=== PATIENT | male | born 1970 | race Caucasian/White ===

== ENCOUNTER 2019-09-25 07:35 | Inpatient (IN) | payer BC, OTHER ==
[~2019-09-25] VITALS: Ht 185 cm; Wt 121.3 kg
[2019-09-25] VITALS (15 sets, daily range): BP systolic 114–141; BP diastolic 77–99
[2019-09-25] MEDS ORDERED: NITROGLYCERIN 2% OINT 1 GM UNIT DOSE PACKET TOP STA (07:42)
[2019-09-25] MEDS ORDERED: ASPIRIN 81 MG CHEW (CHILDREN'S ASA) PO ONE (07:45)
[2019-09-25] MEDS ORDERED: HEParin 1000 UNIT/ML (10ML VIAL) FOR BOLUS IV STA (07:45)
[2019-09-25] MEDS ORDERED: morphine INJ 10 MG/ML 1ML (SYR OR VIAL) IVP ONE (07:45)
[2019-09-25] MEDS ORDERED: TICAGRELOR 90 MG TABLET (BRILINTA) PO STA (07:45)
--- NOTE | 2019-09-25 07:51 | ED Chest Pain ---
General Chief Complaint: Cardiac/General Problems Stated Complaint: CHEST PAIN Nursing Triage Note: Woke up from sleep approximately 10 minutes prior to arrival with pressure in chest rated at 8/10. Denies previous heart history. Pain does not radiate. STates he is slightly short of breath. Nursing Sepsis Screen: No Definite Risk Source: patient History of Present Illness Date Seen by Provider: Sep 25, 2019 Time Seen by Provider: 07:35 Initial Comments 49-year-old male presenting with complaints of chest pressure started 5-10 minutes prior to arrival. He rates the pressure in his chest 8 out of 10. He denies any personal cardiac history. He states that the pressure is not radiating anywhere. He has some nausea with the pressure and feels sweaty. He did not take anything at home prior to arrival. He denies any past medical history from himself but has a family history with his dad having a heart attack as well as his paternal grandfather Allergies and Home Medications Allergies Coded Allergies: No Known Drug Allergies (Unverified , 09/25/19) Patient Home Medication List Home Medication List Reviewed: Yes Review of Systems Review of Systems Constitutional: No chills; diaphoresis; No fever; malaise EENTM: No Symptoms Reported Respiratory: Shortness of Air (mild shortness of breath with his pressure in chest) Cardiovascular: Chest Pain (chest pressure in middle of chest) Gastrointestinal: Nausea; Denies Vomiting Genitourinary: No Symptoms Reported Musculoskeletal: no symptoms reported Skin: no symptoms reported Psychiatric/Neurological: No Symptoms Reported Past Mgvygnc-Rynqxw-Lqanfs Hx Past Med/Social Hx: Reviewed Nursing Past Med/Soc Hx Patient Social History Alcohol Use: Occasionally Uses Recreational Drug Use: No Smoking Status: Former Smoker Former Smoker, Quit: Sep 11, 2018 2nd Hand Smoke Exposure: No Recent Foreign Travel: No Contact w/Someone Who Travel: No Recent Infectious Disease Expo: No Recent Hopitalizations: No Seasonal Allergies Seasonal Allergies: No Past Medical History Surgeries: No Respiratory: No Cardiac: No Neurological: No Genitourinary: No Gastrointestinal: No Musculoskeletal: No Endocrine: No HEENT: No Cancer: No Psychosocial: No Integumentary: No Blood Disorders: No Adverse Reaction/Blood Tranf: No Family Medical History Reviewed and Corrections made CAD Over 55 Years Old Physical Exam Vital Signs Vital Signs - First Documented 09/25/19 07:41 Temp 35.9 Pulse 57 Resp 15 B/P (MAP) 129/88 (102) Pulse Ox 99 Capillary Refill : Less Than 3 Seconds Height, Weight, BMI Height: '" Weight: lbs. oz. kg; 35.00 BMI Method: General Appearance: WD/WN, Anxious, Mild Distress HEENT: PERRL/EOMI, Pharynx Normal Neck: Full Range of Motion, Normal Inspection, Non Tender, Supple Respiratory: Chest Non Tender, Lungs Clear, Normal Breath Sounds Cardiovascular: Regular Rate, Rhythm, Normal Peripheral Pulses Gastrointestinal: Normal Bowel Sounds, No Organomegaly, Non Tender, Soft Rectal: Deferred Extremity: Normal Capillary Refill, No Pedal Edema Neurologic/Psychiatric: Alert, Oriented x3, No Motor/Sensory Deficits Skin: Normal Color, Diaphoresis (mild) Progress/Results/Core Measures Results/Orders Lab Results Laboratory Tests Test 09/25/19 07:44 09/25/19 08:00 Range/Units White Blood Count 13.8 H 4.3-11.0 10^3/uL Red Blood Count 5.09 4.35-5.85 10^6/uL Hemoglobin 15.9 13.3-17.7 G/DL Hematocrit 46 40-54 % Mean Corpuscular Volume 90 80-99 FL Mean Corpuscular Hemoglobin 31 25-34 PG Mean Corpuscular Hemoglobin Concent 35 32-36 G/DL Red Cell Distribution Width 12.8 10.0-14.5 % Platelet Count 328 130-400 10^3/uL Mean Platelet Volume 10.8 H 7.4-10.4 FL Neutrophils (%) (Auto) 46 42-75 % Lymphocytes (%) (Auto) 45 H 12-44 % Monocytes (%) (Auto) 7 0-12 % Eosinophils (%) (Auto) 2 0-10 % Basophils (%) (Auto) 0 0-10 % Neutrophils # (Auto) 6.3 1.8-7.8 X 10^3 Lymphocytes # (Auto) 6.2 H 1.0-4.0 X 10^3 Monocytes # (Auto) 1.0 0.0-1.0 X 10^3 Eosinophils # (Auto) 0.3 0.0-0.3 10^3/uL Basophils # (Auto) 0.1 0.0-0.1 10^3/uL Prothrombin Time 12.7 12.2-14.7 SEC INR Comment 0.9 0.8-1.4 Activated Partial Thromboplast Time 25 24-35 SEC Sodium Level 139 135-145 MMOL/L Potassium Level 3.5 L 3.6-5.0 MMOL/L Chloride Level 101 98-107 MMOL/L Carbon Dioxide Level 25 21-32 MMOL/L Anion Gap 13 5-14 MMOL/L Blood Urea Nitrogen 13 7-18 MG/DL Creatinine 0.97 0.60-1.30 MG/DL Estimat Glomerular Filtration Rate > 60 BUN/Creatinine Ratio 13 Glucose Level 130 H 70-105 MG/DL Calcium Level 9.3 8.5-10.1 MG/DL Corrected Calcium 9.1 8.5-10.1 MG/DL Magnesium Level 2.1 1.6-2.4 MG/DL Total Bilirubin 0.5 0.1-1.0 MG/DL Aspartate Amino Transf (AST/SGOT) 33 5-34 U/L Alanine Aminotransferase (ALT/SGPT) 61 H 0-55 U/L Alkaline Phosphatase 93 40-136 U/L Troponin I < 0.30 <0.30 NG/ML Pro-B-Type Natriuretic Peptide 16.7 <75.0 PG/ML Total Protein 7.2 6.4-8.2 GM/DL Albumin 4.2 3.2-4.5 GM/DL My Orders Orders - BREA ACEVEDO MD Cbc With Automated Diff (09/25/19 07:41) Magnesium (09/25/19 07:41) Chest 1 View Ap/Pa Only (09/25/19 07:41) Ekg Tracing (09/25/19:41) Comprehensive Metabolic Panel (09/25/19:41) Protime With Inr (09/25/19 07:41) Partial Thromboplastin Time (09/25/19 07:41) O2 (09/25/19 07:41) Monitor-Rhythm Ecg Trace Only (09/25/19:41) Aspirin Chewable Tablet (Baby Aspirin Ch (09/25/19 07:45) Ed Iv/Invasive Line Start (09/25/19 07:41) Troponin I Fs (09/25/19 07:41) Probnp Fs (09/25/19 07:41) Morphine Injection (Morphine Injection (09/25/19 07:45) Nitroglycerin Ointment (Nitrobid Ointme (09/25/19 07:42) Ticagrelor Tablet (Brilinta Tablet) (09/25/19 07:45) Heparin (Bolus Per Protocol) (Heparin (B (09/25/19 07:45) Coronavirus Sars-Cov-2 So 2019 (09/25/19 07:53) Ondansetron Injection (Zofran Injectio (09/25/19 07:54) Morphine Injection (Morphine Injection (09/25/19 08:02) Medications Given in ED Current Medications Medications Dose Ordered Sig/Tracee Route Start Time Stop Time Status Last Admin Dose Admin Aspirin 324 mg ONCE ONCE PO 09/25/19 07:45 09/25/19 07:46 DC 09/25/19 07:46 324 MG Morphine Sulfate 2 mg ONCE ONCE IVP 09/25/19 07:45 09/25/19 07:46 DC 09/25/19 07:47 2 MG Vital Signs/I&O 09/25/19 09/25/19 07:41 08:15 Temp 35.9 35.9 Pulse 57 54 Resp 15 16 B/P (MAP) 129/88 (102) 127/93 (104) Pulse Ox 99 99 Blood Pressure Mean: 102 Progress Progress Note : Progress Note his ECG shows ST elevation in lead I and aVL with depression in III and aVF. Will give aspirin and nitroglycerin with morphine. [address] Sanders and updated him of the patient. He requested 180 mg of Brillinta as well as Heparin 5000 units. Transfer to ED and will go to [facility] from there 0746 d/w Jairo RN, nursing supervisor bit and shank department to update him of pt 0748 d/w ED and Dr. Varghese so they were aware of transfer. He requested Covid -19 swab and to send swab with ambulance so it could be run in [place]. 0802 pt reports no significant change in his pressure. Will repeat another 2 mg of Morphine in addition to his initial meds. EMS here to transport pt. Labs show mild elevation of WBC count with increased lymphocytes. Chemistry with no acute significant abnormality and Troponin is <0.3. Initial ECG Impression Date: Sep 25, 2019 Initial ECG Impression Time: 07:37 Initial ECG Rate: 56 Initial ECG Rhythm: Normal Sinus Initial ECG Comparisson: No Previous ECG Available Comment Sinus rhythm with a heart rate of 56 bpm. FL interval 149 ms. QT interval 420 ms QTc interval 406 ms. There is no prior tracing available for comparison. He has ST elevation in leads 1 and aVL with depression in 3 and aVF. Diagnostic Imaging Diagonstic Imaging: Xray Plain Films/CT/US/NM/MRI: chest Comments [facility]. [place], [place] NAME: MARTÍN BEEBE [facility] REC#: [id number] PT STATUS: REG ER : 1970 PHYSICIAN: BREA ACEVEDO MD ADMIT DATE: 09/25/19/ER FS Draft Date of Exam:09/25/19 CHEST 1 VIEW AP/PA ONLY EXAMINATION: Chest 1 view HISTORY: Chest pain. COMPARISON: None available. FINDINGS: The lung volumes are normal. No focal consolidation is seen. No large pleural effusion or pneumothorax is seen. The cardiomediastinal silhouette is normal in size and contour. No acute osseous abnormality is seen. IMPRESSION: 1. No acute pleuroparenchymal process. Dictated on workstation # [id number] Dict: 09/25/19 0808 Trans: 09/25/19 0809 [facility] [id number] Interpreted by: CONY SUERO DO Electronically signed by: Departure Communication (Admissions) Time/Spoke to Consulting Phy: 07:[address] Sanders for cardiology and will have pt go to ED in [place] and then [facility] [employer] from there. Impression Primary Impression: STEMI (ST elevation myocardial infarction) Qualified Codes: I21.3 - ST elevation (STEMI) myocardial infarction of unspecified site Disposition: 02 XFER SHT-TRM HOSP ([facility] to go to [facility]) Condition: Critical Departure-Patient Inst. Referrals: NO,LOCAL PHYSICIAN (PCP/Family) Primary Care Physician BREA ACEVEDO MD Sep 25, 2019 07:51
[2019-09-25] MEDS ORDERED: ONDANSETRON 4 MG/2 ML (SDV) Z0FRAN IVP STA (07:54)
[2019-09-25 07:58] LABS: BASOPHILS % (AUTO) 0 % (0-10); EOSINOPHILS % (AUTO) 2 % (0-10); HEMATOCRIT 46 % (40-54); HEMOGLOBIN 15.9 G/DL (13.3-17.7); LYMPHOCYTES % (AUTO) 45 % (12-44); MEAN CORPUSCULAR HEMOGLOBIN 31 PG (25-34); MEAN CORPUSCULAR HGB CONC 35 G/DL (32-36); MEAN CORPUSCULAR VOLUME 90 FL (80-99); MEAN PLATELET VOLUME 10.8 FL (7.4-10.4); MONOCYTES % (AUTO) 7 % (0-12); PLATELET COUNT 328 10^3/uL (130-400); RED CELL DISTRIBUTION WIDTH 12.8 % (10.0-14.5); WHITE BLOOD COUNT 13.8 10^3/uL (4.3-11.0)
[2019-09-25 07:59] LABS: BASOPHILS # (AUTO) 0.1 10^3/uL (0.0-0.1); EOSINOPHILS # (AUTO) 0.3 10^3/uL (0.0-0.3); LYMPHOCYTES # (AUTO) 6.2 X 10^3 (1.0-4.0); NEUTROPHILS # (AUTO) 6.3 X 10^3 (1.8-7.8); NEUTROPHILS % (AUTO) 46 % (42-75)
[2019-09-25] MEDS ORDERED: morphine INJ 10 MG/ML 1ML (SYR OR VIAL) IVP STA (08:02)
[2019-09-25 08:08] LABS: CARBON DIOXIDE 25 MMOL/L (21-32); CHLORIDE 101 MMOL/L (98-107); POTASSIUM 3.5 MMOL/L (3.6-5.0); SODIUM 139 MMOL/L (135-145)
[2019-09-25 08:09] LABS: BILIRUBIN,TOTAL 0.5 MG/DL (0.1-1.0); CALCIUM 9.3 MG/DL (8.5-10.1); MAGNESIUM 2.1 MG/DL (1.6-2.4)
--- NOTE | 2019-09-25 08:09 | Diagnostic Imaging Report ---
EXAMINATION: Chest 1 view HISTORY: Chest pain. COMPARISON: None available. FINDINGS: The lung volumes are normal. No focal consolidation is seen. No large pleural effusion or pneumothorax is seen. The cardiomediastinal silhouette is normal in size and contour. No acute osseous abnormality is seen. IMPRESSION: 1. No acute pleuroparenchymal process. Dictated by: Dictated on workstation # [id number]
[2019-09-25 08:13] LABS: BUN/CREATININE RATIO 13; CREATININE SERUM 0.97 MG/DL (0.60-1.30); GFR ESTIMATED > 60; GLUCOSE 130 MG/DL (70-105)
[2019-09-25 08:14] LABS: ALANINE AMINOTRANSFERASE 61 U/L (0-55); ALBUMIN 4.2 GM/DL (3.2-4.5); ALKALINE PHOSPHATASE 93 U/L (40-136); TOTAL PROTEIN 7.2 GM/DL (6.4-8.2)
[2019-09-25 08:25] LABS: INR 0.9 (0.8-1.4); PROTHROMBIN TIME PATIENT 12.7 SEC (12.2-14.7)
--- OUTSIDE RECORDS SUMMARY | 2019-09-25 08:46 | XMS REPORT | Continuity of Care Document ---
Demographics Preferred Language Unknown Marital Status Unknown [employer] Affiliation Unknown Race Unknown Ethnic Group Unknown Author Organization Unknown Address Unknown Phone Unavailable Allergies There is no data. Medications There is no data. Problems There is no data. Procedures There is no data. Results Test Result Range Complete blood count (CBC) with automate d white blood cell (WBC) differential - 09/25/19 07:44 Blood leukocytes automated count (number/volume) 13.8 10*3/uL 4.3-11.0 Blood erythrocytes automated count (number/volume) 5.09 10*6/uL 4.35-5.85 Venous blood hemoglobin measurement (mass/volume) 15.9 g/dL 13.3-17.7 Blood hematocrit (volume fraction) 46 % 40-54 Automated erythrocyte mean corpuscular volume 90 [ foz_us] 80-99 Automated erythrocyte mean corpuscular h emoglobin (mass per erythrocyte) 31 pg 25-34 Automated erythrocyte mean corpuscular h emoglobin concentration measurement (mass/volume) 35 g/dL 32-36 Automated erythrocyte distribution width ratio 12. 8 % 10.0- 14.5 Automated blood platelet count (count/volume) 328 10*3/uL 130-400 Automated blood platelet mean volume measurement 10.8 [foz_us] 7.4-10.4 Automated blood neutrophils/100 leukocytes 46 % 42-75 Automated blood lymphocytes/100 leukocytes 45 % 12-44 Blood monocytes/100 leukocytes 7 % 0-12 Automated blood eosinophils/100 leukocytes 2 % 0-10 Automated blood basophils/100 leukocytes 0 % 0-10 Blood neutrophils automated count (number/volume) 6.3 10*3 1.8-7.8 Blood lymphocytes automated count (number/volume) 6.2 10*3 1.0-4.0 Blood monocytes automated count (number/volume) 1. 0 10*3 0.0-1.0 Automated eosinophil count 0.3 10*3/uL 0 .0-0.3 Automated blood basophil count (count/volume) 0.1 10*3/uL 0.0-0.1 Comprehensive metabolic panel - 09/25/19 07:44 Serum or plasma sodium measurement (moles/volume) 139 mmol/L 135-145 Serum or plasma potassium measurement (moles/volume) 3.5 mmol/L 3.6-5.0 Serum or plasma chloride measurement (moles/volume) 101 mmol/L 98-107 Carbon dioxide 25 mmol/L 21-32 Serum or plasma anion gap determination (moles/volume) 13 mmol/L 5-14 Serum or plasma urea nitrogen measurement (mass/volume ) 13 mg/dL 7-18 Serum or plasma creatinine measurement (mass/volume) 0.97 mg/dL 0.60-1.30 Serum or plasma urea nitrogen/creatinine mass ratio 13 NRG Serum or plasma creatinine measurement w ith calculation of estimated glomerular filtration rate > NRG Serum or plasma glucose measurement (mass/volume) 130 mg/dL 70-105 Serum or plasma calcium measurement (mass/volume) 9.3 mg/dL 8.5-10.1 Serum or plasma total bilirubin measurement (mass/volu me) 0.5 mg/dL 0.1-1.0 Serum or plasma alkaline phosphatase bernardo surement (enzymatic activity/volume) 93 U/L 40-136 Serum or plasma aspartate aminotransfera se measurement (enzymatic activity/volume) 33 U/L 5-34 Serum or plasma alanine aminotransferase measurement (enzymatic activity/volume) 61 U/L 0-55 Serum or plasma protein measurement (mass/volume) 7.2 g/dL 6.4-8.2 Serum or plasma albumin measurement (mass/volume) 4.2 g/dL 3.2-4.5 CALCIUM CORRECTED 9.1 mg/dL 8.5-10.1 Magnesium - 09/25/19 07:44 Magnesium 2.1 mg/dL 1.6-2.4 TROPONIN I FS - 09/25/19 07:44 TROPONIN I FS < 0.30 <0.30 PROBNP FS - 09/25/19 07:44 PROBNP FS 16.7 pg/mL <75.0 PT panel in platelet poor plasma by coag ulation assay - 09/25/19 07:44 Prothrombin time (PT) in platelet poor plasma by coagu lation assay 12.7 s 12.2-14.7 INR in platelet poor plasma or blood by coagulation as say 0.9 0.8-1.4 Activated partial thromboplastin time (a PTT) in platelet poor plasma bycoagulation assay - 09/25/19 07:44 Activated partial thromboplastin time (a PTT) in platelet poor plasma bycoagulation assay 25 s 24-35 Encounters ACCT No. Visit Date/Time Discharge Status Pt. Type Provider Facility Loc./Unit Complaint [id number] 09/25/2019 08:00:00 Document Registration
[2019-09-25] MEDS ORDERED: niCARdipine 25 MG/10 ML (CARDENE) AMP IV ONE (10:14)
[2019-09-25] MEDS ORDERED: NS (IVPB) 250 ML ONE (10:15)
[2019-09-25] MEDS ORDERED: EPTIFIBATIDE BOLUS 20 ML IV ONE (10:33)
[2019-09-25] MEDS ORDERED: LIDOCAINE 1% INJ 20 ML 20 ML VIAL ONE (10:35)
[2019-09-25] MEDS ORDERED: NITRO DRIP 25000 MCG/D5W 250 ML IV ONE (10:35)
[2019-09-25] MEDS ORDERED: MIDAZOLAM 5 MG/5 ML (VERSED) VIAL ONE (10:35)
[2019-09-25] MEDS ORDERED: fentaNYL INJECTION 100 MCG/2 ML AMP ONE (10:35)
[2019-09-25] MEDS ORDERED: HEParin (CATH LAB) 2,000 ML IV ONE (10:35)
[2019-09-25] MEDS ORDERED: HEParin 1000 UNIT/ML (10ML VIAL) FOR BOLUS ONE ×2 (10:35→17:41)
[2019-09-25] MEDS ORDERED: NS IV 1000 ML 1,000 ML ONE (10:35)
[2019-09-25] MEDS ORDERED: EPTIFIBATIDE DRIP 100 ML IV ONE (10:36)
[2019-09-25] MEDS ORDERED: HEParin DRIP 25000 UNIT/500ML 500 ML IV ONE (10:52)
--- NOTE | 2019-09-25 11:08 | History & Physicial-Cardiolgy ---
HPI-Cardiology Cardiology Consultation: Date of Consultation 09/25/19 Date of Admission Attending Physician Toro Sanders MD Admitting Physician Jyoti,Local Physician Consulting Physician Toro SANDERS MD HPI: Time Seen by a Provider: 09:20 Chief Complaint: Chest pain This is a 49-year-old gentleman with no significant past medical history who presents with chest pain to [facility]. Moderate to severe chest pain. Intensity 8/10. Feels like pressure. No radiation. Associated with nausea and sweating. No shortness of breath, syncope or near syncope. Denies active smoking. Denies diabetes, hypertension, hyperlipidemia. Family history is positive for father having an SC. EKG shows acute lateral SC and patient is emergently being transferred to via [facility]. Review of Systems-Cardiology Review of Systems Constitutional: As described under HPI; No As described under HPI, No no symptoms reported, No chills, No fever, No lightheadedness Eyes: No As described under HPI, No no symptoms reported, No blindness, No blurred vision, No contact lenses, No drainage, No decreased acuity, No foreign body sensation, No pain, No vision change Ears/Nose/Throat: No As described under HPI, No no symptoms reported, No chronic hearing loss, No ear discharge, No ear pain, No nasal drainage, No ulcerations Respiratory: No no symptoms reported; As described under HPI; No As described under HPI, No cough, No orthopnea, No shortness of breath, No SOB with excertion Cardiovascular: No no symptoms reported; As described under HPI; No As described under HPI; chest pain; No edema, No irregular heart rate, No lightheadedness, No palpitations Gastrointestinal: No no symptoms reported, No As described under HPI, No abdomen distended, No abdominal pain, No blood streaked bowels, No constipation, No diarrhea, No nausea, No vomiting, No stool coloration changes Genitourinary: No As described under HPI, No burning, No dysuria, No discharge, No frequency, No flank pain, No hematuria, No urgency Skin: No rash, No skin related problems, No ulcerations Psychiatric/Neurological: No anxiety, No depression, No seizure, No focal weakness, No syncope Hematologic: No bleeding abnormalities VZB-Aovdso-Mseufr Hx Patient Social History Alcohol Use: Occasionally Uses Recreational Drug Use: No Smoking Status: Former Smoker 2nd Hand Smoke Exposure: No Recent Foreign Travel: No Recent Infectious Disease Expo: No Past Medical History PMH As described under Assessment. Allergies and Home Medications Allergies Coded Allergies: No Known Drug Allergies (Unverified , 09/25/19) Home Medications No Active Prescriptions or Reported Meds Patient Home Medication List Home Medication List Reviewed: Yes Physical Exam-Cardiology Physical Exam Vital Signs/I&O 09/26/19 09/26/19 09/26/19 09/26/19 05:00 06:00 06:30 07:00 Temp 36.8 Pulse 72 73 92 Resp 14 16 23 B/P (MAP) 139/86 (103) 130/86 (101) 121/84 (96) Pulse Ox 95 95 94 O2 Delivery Room Air Room Air Room Air 09/26/19 09/26/19 09/26/19 09/26/19 07:00 08:00 08:00 08:00 Temp 36.3 Pulse 97 75 Resp 12 B/P (MAP) 134/83 (100) Pulse Ox 95 97 O2 Delivery Room Air Room Air 09/26/19 09/26/19 09/26/19 09/26/19 09:00 09:20 10:00 11:00 Pulse 82 76 79 65 Resp 17 18 13 B/P (MAP) 101/73 (82) 130/81 (97) Pulse Ox 95 96 96 O2 Delivery Room Air Room Air Room Air 09/26/19 09/26/19 09/26/19 09/26/19 12:00 12:00 12:00 12:53 Temp 36.8 Pulse 68 76 Resp 15 B/P (MAP) 110/69 (83) Pulse Ox 96 97 O2 Delivery Room Air Room Air 09/26/19 09/26/19 09/26/19 09/26/19 13:00 13:24 14:00 15:00 Pulse 67 79 65 72 Resp 14 16 12 B/P (MAP) 120/81 (94) 124/92 (103) 121/88 (99) Pulse Ox 95 95 96 O2 Delivery Room Air Room Air Room Air 09/26/19 09/26/19 15:47 16:00 Temp 36.7 Pulse 70 Resp 13 B/P (MAP) 120/83 (95) Pulse Ox 95 O2 Delivery Room Air 09/26/19 00:00 Intake Total 1840 ml Output Total 1700 ml Balance 140 ml Capillary Refill : Less Than 3 Seconds Constitutional: appears stated age, AAO x 3; No apparent distress; well- developed, well-nourished HEENT: PERRL; No discharge; hearing is well preserved, oral hygience is good; No ulceration, No xanthelasmas are seen Neck: No carotid bruit; carotid pulses are 2 + bilaterally Respiratory: chest is bilaterally symmetric, lungs clear to auscultation; No stridor, No wheezing, No pleural rub Cardiovascular: regular rate-rhythm, S1 and S2; No diastolic murmur, No systolic murmur Gastrointestinal: soft, audible bowel sounds; No spleenomegaly Rectal: deferred Extremities: normal range of motion, non-tender, normal inspection; No clubbing, No cyanosis; no lower extremity edema bilateral; No significant edema Neurologic/Psychiatric: no motor/sensory deficits, alert, normal mood/affect, oriented x 3, power is 5/5 both on sides Skin: normal color, warm/dry; No rash, No ulcerations Data Review Labs Laboratory Tests 09/25/19 17:15: Activated Partial Thromboplast Time 31 09/26/19 00:20: Activated Partial Thromboplast Time 33 09/26/19 02:55: White Blood Count 16.1H, Red Blood Count 4.87, Hemoglobin 15.1, Hematocrit 43, Mean Corpuscular Volume 89, Mean Corpuscular Hemoglobin 31, Mean Corpuscular Hemoglobin Concent 35, Red Cell Distribution Width 13.3, Platelet Count 306, Mean Platelet Volume 11.0H, Sodium Level 140, Potassium Level 3.7, Chloride Level 108H, Carbon Dioxide Level 19L, Anion Gap 13, Blood Urea Nitrogen 8, Creatinine 0.85, Estimat Glomerular Filtration Rate > 60, BUN/Creatinine Ratio 9, Glucose Level 120H, Calcium Level 9.0, Troponin I 39.674*H 09/26/19 07:09: Activated Partial Thromboplast Time 34 09/26/19 13:45: Activated Partial Thromboplast Time 36H Microbiology 09/25/19 MRSA Screen - Final, Complete MRSA not isolated ECG Impression ECG Initial ECG Rhythm: Normal Sinus Initial ECG Impression: Acute SC A/P-Cardiology Assessment/Admission Diagnosis Acute lateral STEMI Admission Status: Inpatient Order (span 2 midnights) Reason for Inpatient Admission: STEMI Plan Acute lateral STEMI, emergent coronary angiography and primary PCI is recommended. Emergent consent taken. Aspirin, Brilinta, IV heparin given. Toro SANDERS MD Sep 25, 2019 11:08
--- NOTE | 2019-09-25 11:09 | Cardiac Procedure Note-CS/ASA ---
Pre-Procedure Note Pre-Op Procedure Note H&P Reviewed The H&P was reviewed, patient examined and no changes noted. Date H&P Reviewed: Sep 25, 2019 Time H&P Reviewed: 09:20 Conscious Sedation Pre-Proced Time 09:20 ASA Score 3 For ASA 3 and 4: Consider anesthesia and medical clearance. Also, for patients with a history of failed moderate sedation consider anesthesia. Airway Lungs Heart ASA score ASA 1: a normal healthy patient ASA 2: a patient with a mild systemic disease (mid diabetes, controlled hypertension, obesity ASA 3: a patient with a severe systemic disease that limits activity (angina, COPD, prior Myocardial infarction) ASA 4: a patient with an incapacitating disease that is a constant threat to life (CHF, renal failure) ASA 5: a moribund patient not expected to survive 24 hrs. (ruptured aneurysm) ASA 6: a declared brain- patient whose organs are being harvested. For emergent operations, add the letter E after the classification Mallampati Classification Grade 1 Sedation Plan Analgesia, Amnesia, Plan communicated to team members, Discussed options with patient/fam, Discussed risks with patient/fam The patient is an appropriate candidate to undergo the planned procedure, sedation, and anesthesia. The patient immediately re-assessed prior to indication. Toro TAM MD Sep 25, 2019 11:09
--- NOTE | 2019-09-25 11:11 | Coronary Angiography & PCI ---
Coronary Angiography & PCI DATE OF PROCEDURE: 09/25/19 INDICATION: Acute lateral STEMI. PREOPERATIVE DIAGNOSIS: Acute Lateral STEMI. POSTOPERATIVE DIAGNOSIS: Significant athero-ectasia, occluded OM 2, successful revascularization. HISTORY: This is a 49-year-old gentleman with no significant past medical history. He presented with acute chest pain and ST elevations in lead 1, aVL. Working diagnosis of acute STEMI. Therefore, the patient was transferred for emergent coronary angiography. PROCEDURES PERFORMED: 1.Coronary angiography. 2.Left heart catheterization. 3.PTCA to second OM. 4. Manual thrombectomy. COMPLICATIONS: None. SPECIMENS: None. ESTIMATED BLOOD LOSS: 10 mL ANESTHESIA: Conscious sedation ANTICOAGULATION: IV heparin CONTRAST: 314 mL. FLUOROSCOPY: 38.1 minutes. FLOUROSCOPY DOSE: [id number] mgy. PROCEDURE DETAILS: The patient is a 49 male and was brought to the laboratory cureman after emergent informed consent was taken by the ER attending. He was transferred emergently from [facility] to [facility] for primary PCI. He was draped and prepped in the usual sterilized fashion. Since he was considered of PUI for COVID-19, COVID-19 protocol was followed. RCA was engaged with a JR4 catheter. EBU 3.5 guide catheter for left coronary angiography. FINDINGS: 1.Left main: Patent. 2.LAD: Athero-ectasia noted in the proximal and mid section with mild slow flow distally. No focal stenosis noted. 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 Large thrombus burden likely. Occluded OM 2 with no distal vessel noted on prolonged injection. 4.RCA: Athero-ectasia noted in the mid RCA with slow distal flow. 5.Left heart catheterization: LV pressure 120/2 mmHg. LVEDP 16 mmHg. Aortic pressure 117/78 mmHg. LVEF 45-50 percent. Mild global hypokinesis. No gradient across the aortic valve. RECOMMENDATIONS: PCI to second OM is recommended. INTERVENTION DETAILS: Door to balloon time of 47 minutes. EBU 3.5 guide catheter, whisper extra- support guidewire, IV heparin for anticoagulation. Very difficult PCI. No distal vessel was noted even on prolonged injections. We've gradually probed with the whisper wire and were able to get distally. However we were unclear whether we were in the true lumen since there were no recanalization or even faint filling of the distal vessel with balloon angioplasty with an emerge 2.0 x 12 mm balloon. Therefore we left the whisper wire in place and went in with the Choice PT wire. The Choice PT wire also followed the whisper wire. A lot of low-pressure ballooning was done in the entire occluded segment. We then noted faint filling in an AV groove artery. We then pulled back the whisper wire and placed it in the AV groove artery. Gentle ballooning was done at the ostium of the AV groove artery with mild recanalization. After significant ballooning we noted faint filling of an OM 2. We therefore took a third whisper extra-support wire and with difficulty, were able to advance into the second OM. Ballooning was done anywhere from 4 smitha to 10 smitha throughout the length of the occlusion. Prolonged ballooning was done as much as for 80 seconds. Post angioplasty we noted significant improvement in flow. However no severe stenosis was noted. Distal embolization was noted. We then took a Pronto catheter and placed it just past the aneurysm and manual thrombectomy was done. Afterwards we used the same catheter and used the lumen to inject 500 g of Cardene and 2 boluses of Integrilin. Significant improved flow was noted in the OM 2 with no focal stenosis therefore stenting was not done. The patient was started on IV heparin as well as IV Integrilin. Patient was having no further chest pain. Therefore we decided to stop and treat him with medical therapy overnight. Right femoral artery was closed with a minx device. CONCLUSIONS: 1. At least moderate athero-ectasia of the LAD and RCA. 2. 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 3. Successful revascularization with balloon angioplasty, thrombus aspiration and intracoronary injection of 2B3A and Cardene. No focal stenosis therefore stenting not done. 4. Overnight Integrilin and IV heparin. 5. Aggressive hydration. Arnold Sanders MD, FACP, FACC, [facility] Interventional Cardiology Toro SANDERS MD Sep 25, 2019 11:10
[2019-09-25] MEDS ORDERED: PATIENT MAY USE OWN MEDS, ALL PO SCH (11:15)
[2019-09-25] MEDS: NS IV 1000 ML 1,000 ML IV SCH ×2 (12:21→17:11)
--- OUTSIDE RECORDS SUMMARY | 2019-09-25 12:35 | XMS REPORT | Continuity of Care Document ---
Demographics Preferred Language Unknown Marital Status Unknown Episcopal Affiliation Unknown Race Unknown Ethnic Group Unknown [...] Status Pt. Type Provider Facility Loc./Unit Complaint [id number] 09/25/2019 08:00:00 Document Registration
[2019-09-25] MEDS: EPTIFIBATIDE DRIP 100 ML IV SCH ×2 (14:47→20:57)
[2019-09-25] MEDS: HEParin DRIP 25000 UNIT/500ML 500 ML IV SCH (15:54)
[2019-09-25] MEDS: TICAGRELOR 90 MG TABLET (BRILINTA) PO SCH (20:52)
--- NOTE | 2019-09-25 23:06 | NUR ---
Received negative Covid results. Dr. Sanders notified. Order received to remove pt from isolation.
[2019-09-26] VITALS (23 sets, daily range): BP systolic 101–143; BP diastolic 61–96
[2019-09-26] MEDS ORDERED: HEParin 1000 UNIT/ML (10ML VIAL) FOR BOLUS IV SCH (01:15)
[2019-09-26] MEDS: EPTIFIBATIDE DRIP 100 ML IV SCH ×2 (03:12→09:20)
[2019-09-26] MEDS: NS IV 1000 ML 1,000 ML IV SCH ×3 (03:13→22:37)
[2019-09-26 03:15] LABS: HEMOGLOBIN 15.1 G/DL (13.3-17.7); RED CELL DISTRIBUTION WIDTH 13.3 % (10.0-14.5); WHITE BLOOD COUNT 16.1 10^3/uL (4.3-11.0)
[2019-09-26 03:33] LABS: BUN/CREATININE RATIO 9; CARBON DIOXIDE 19 MMOL/L (21-32); CHLORIDE 108 MMOL/L (98-107); CREATININE SERUM 0.85 MG/DL (0.60-1.30); GFR ESTIMATED > 60; GLUCOSE 120 MG/DL (70-105); POTASSIUM 3.7 MMOL/L (3.6-5.0); SODIUM 140 MMOL/L (135-145)
[2019-09-26] MEDS: ASPIRIN E.C. 81 MG (ECOTRIN) TAB PO SCH (09:18)
[2019-09-26] MEDS: TICAGRELOR 90 MG TABLET (BRILINTA) PO SCH (09:20)
--- NOTE | 2019-09-26 10:57 | NUR ---
SPOKE WITH THE PT TO COMPLETE THE MED REC THE PT DENIES TAKING ANY PRESCRIPTION OR OTC MEDICATION
--- NOTE | 2019-09-26 11:10 | NUR ---
Pastoral care visit.
[2019-09-26] MEDS: meTOproloL SUCCINATE 50 MG (TOPROL XL) TAB PO SCH (11:30)
[2019-09-26] MEDS: CLOPIDOGREL 75 MG (PLAVIX) TABLET PO SCH (11:30)
[2019-09-26] MEDS: HEParin DRIP 25000 UNIT/500ML 500 ML IV SCH (11:34)
--- NOTE | 2019-09-26 16:50 | Cardiology Progress Note ---
Cardiology SOAP Progress Note Subjective: No further chest pain. Objective: I&O/Vital Signs 09/26/19 09/26/19 09/26/19 09/26/19 05:00 06:00 06:30 07:00 Temp 36.8 Pulse 72 73 92 Resp 14 16 23 B/P (MAP) 139/86 (103) 130/86 (101) 121/84 (96) Pulse Ox 95 95 94 O2 Delivery Room Air Room Air Room Air 09/26/19 09/26/19 09/26/19 09/26/19 07:00 08:00 08:00 08:00 Temp 36.3 Pulse 97 75 Resp 12 B/P (MAP) 134/83 (100) Pulse Ox 95 97 O2 Delivery Room Air Room Air 09/26/19 09/26/19 09/26/19 09/26/19 09:00 09:20 10:00 11:00 Pulse 82 76 79 65 Resp 17 18 13 B/P (MAP) 101/73 (82) 130/81 (97) Pulse Ox 95 96 96 O2 Delivery Room Air Room Air Room Air 09/26/19 09/26/19 09/26/19 09/26/19 12:00 12:00 12:00 12:53 Temp 36.8 Pulse 68 76 Resp 15 B/P (MAP) 110/69 (83) Pulse Ox 96 97 O2 Delivery Room Air Room Air 09/26/19 09/26/19 09/26/19 09/26/19 13:00 13:24 14:00 15:00 Pulse 67 79 65 72 Resp 14 16 12 B/P (MAP) 120/81 (94) 124/92 (103) 121/88 (99) Pulse Ox 95 95 96 O2 Delivery Room Air Room Air Room Air 09/26/19 09/26/19 15:47 16:00 Temp 36.7 Pulse 70 Resp 13 B/P (MAP) 120/83 (95) Pulse Ox 95 O2 Delivery Room Air 09/26/19 00:00 Intake Total 1840 ml Output Total 1700 ml Balance 140 ml Constitutional: appears stated age, AAO x 3; No apparent distress; well- developed, well-nourished Respiratory: chest is bilaterally symmetric, lungs clear to auscultation; No stridor, No wheezing, No pleural rub Cardiovascular: regular rate-rhythm, S1 and S2; No diastolic murmur, No systolic murmur Gastrointestional: soft, audible bowel sounds; No spleenomegaly Extremities: normal range of motion, non-tender, normal inspection; No clubbing, No cyanosis; no lower extremity edema bilateral; No significant edema Neurologic/Psychiatric: no motor/sensory deficits, alert, normal mood/affect, oriented x 3, power is 5/5 both on sides Skin: normal color, warm/dry; No rash, No ulcerations Results/Procedures: Labs Laboratory Tests 09/25/19 17:15: Activated Partial Thromboplast Time 31 09/26/19 00:20: Activated Partial Thromboplast Time 33 09/26/19 02:55: White Blood Count 16.1H, Red Blood Count 4.87, Hemoglobin 15.1, Hematocrit 43, Mean Corpuscular Volume 89, Mean Corpuscular Hemoglobin 31, Mean Corpuscular Hemoglobin Concent 35, Red Cell Distribution Width 13.3, Platelet Count 306, Mean Platelet Volume 11.0H, Sodium Level 140, Potassium Level 3.7, Chloride Level 108H, Carbon Dioxide Level 19L, Anion Gap 13, Blood Urea Nitrogen 8, Creatinine 0.85, Estimat Glomerular Filtration Rate > 60, BUN/Creatinine Ratio 9, Glucose Level 120H, Calcium Level 9.0, Troponin I 39.674*H 09/26/19 07:09: Activated Partial Thromboplast Time 34 09/26/19 13:45: Activated Partial Thromboplast Time 36H Microbiology 09/25/19 MRSA Screen - Final, Complete MRSA not isolated A/P: Assessment/Dx: Acute lateral STEMI Plan: Acute lateral STEMI, emergent coronary angiography showed significant athero- ectasia of all 3 vessels. Large proximal aneurysmal ectatic segment of around 9 mm in the proximal left circumflex artery with significant thrombus burden and occluded second OM. Likely embolic in origin. Difficult PCI requiring 300 mL of contrast and 42 minutes of fluoroscopy time but we were finally able to revascularize with MINAL-3 flow in the OM, however distal clot noted. POBA done in the entire segment. An aspiration catheter was used for manual thrombectomy. We also gave IV Cardene and Integrilin through the aspiration catheter. No focal severe stenosis noted at the site of occlusion, therefore very likely embolic phenomenon. Patient admitted overnight on IV Integrilin and IV heparin. Continued aspirin and Brilinta. I spoke at length with the patient and today. I discussed at length the procedure, CAD, STEMI, significant athero-ectasia. I discussed the use of a covered stent to seal the aneurysm however that will be an off label use. However there is a risk of rupture in the future and likely . I will also get a surgical consultation as an outpatient. We do not have a covered stent with length of 3.0 x 28. However due to significant thrombus in the aneurysm, I spoke at length and recommended Coumadin and Eliquis as an alternative. I discussed both the pros and cons for Coumadin and Eliquis. The patient decided to go with Eliquis. We will start Eliquis 5 mg twice a day. We will DC Brilinta and start Plavix. We will DC IV Integrilin when the infusion finishes. Heparin will be discontinued as well. High-dose statin therapy will be started. I will also start low dose beta colleen as well. I will add CRP and ESR to the labs to rule out a systemic inflammatory condition including vasculitis. Echocardiogram will be done today. Thank you for your consultation. Please call me if you have any questions. Arnold Sanders MD, FACP, FACC, FSCAI, FHRS, CCDS Interventional Cardiology Cardiac Electrophysiology Vascular Medicine and Endovascular Interventions Toro SANDERS MD Sep 26, 2019 16:50
[2019-09-26] MEDS ORDERED: ACETAMINOPHEN 325 MG TABLET PO PRN (18:30)
[2019-09-26] MEDS: APIXABAN 5 MG (ELIQUIS) TABLET PO SCH (20:42)
[2019-09-27] VITALS (7 sets, daily range): BP systolic 92–139; BP diastolic 54–96
[2019-09-27 03:22] LABS: BASOPHILS % (AUTO) 0 % (0-10); EOSINOPHILS # (AUTO) 0.1 10^3/uL (0.0-0.3); EOSINOPHILS % (AUTO) 1 % (0-10); HEMATOCRIT 41 % (40-54); LYMPHOCYTES # (AUTO) 3.2 X 10^3 (1.0-4.0); LYMPHOCYTES % (AUTO) 24 % (12-44); MEAN CORPUSCULAR HEMOGLOBIN 31 PG (25-34); MEAN CORPUSCULAR HGB CONC 34 G/DL (32-36); MEAN CORPUSCULAR VOLUME 90 FL (80-99); MEAN PLATELET VOLUME 11.1 FL (7.4-10.4); MONOCYTES # (AUTO) 1.3 X 10^3 (0.0-1.0); MONOCYTES % (AUTO) 10 % (0-12); NEUTROPHILS # (AUTO) 8.8 X 10^3 (1.8-7.8); NEUTROPHILS % (AUTO) 66 % (42-75); PLATELET COUNT 277 10^3/uL (130-400); RED CELL DISTRIBUTION WIDTH 13.7 % (10.0-14.5); WHITE BLOOD COUNT 13.4 10^3/uL (4.3-11.0)
[2019-09-27 03:41] LABS: BUN/CREATININE RATIO 12; CARBON DIOXIDE 20 MMOL/L (21-32); CHLORIDE 107 MMOL/L (98-107); CREATININE SERUM 0.85 MG/DL (0.60-1.30); GFR ESTIMATED > 60; GLUCOSE 107 MG/DL (70-105); PHOSPHORUS 3.7 MG/DL (2.3-4.7); POTASSIUM 3.7 MMOL/L (3.6-5.0); SODIUM 139 MMOL/L (135-145)
[2019-09-27] MEDS: APIXABAN 5 MG (ELIQUIS) TABLET PO SCH (07:54)
[2019-09-27] MEDS: CLOPIDOGREL 75 MG (PLAVIX) TABLET PO SCH (07:54)
[2019-09-27] MEDS: ASPIRIN E.C. 81 MG (ECOTRIN) TAB PO SCH (07:54)
[2019-09-27] MEDS: meTOproloL SUCCINATE 50 MG (TOPROL XL) TAB PO SCH (07:55)
[2019-09-27] MEDS ORDERED: APIX5TAB PO (09:56)
[2019-09-27] MEDS ORDERED: CLOP75TA28 PO (09:56)
[2019-09-27] MEDS ORDERED: METO50TA7 PO (09:56)
[2019-09-27] MEDS ORDERED: ATOR40TA PO (09:56)
--- NOTE | 2019-09-27 10:53 | NUR ---
MARTÍN BEEBE demonstrates understanding of discharge instructions and accurately returns instructions upon questioning. Copy of Post-Discharge Instructions and Medication Discharge Instructions given to patient and . MARTÍN BEEBE is able to manage continuing needs after discharge. Patients belongings returned to patient. Skin dry and intact; no breakdown noted. Patient discharged from [facility] on 09/27/19 at 1053. MARTÍN BEEBE left floor via wheelchair, accompanied by and NT.
--- NOTE | 2019-09-27 14:00 | Cardiology Discharge Summary ---
Diagnosis/Chief Complaint Date of Admission Sep 25, 2019 at 11:13 Date of Discharge Sep 27, 2019 at 10:53 Admission Diagnosis Acute lateral STEMI Final/Discharge Diagnosis Acute lateral STEMI, left circumflex artery aneurysm. Chief Complaint/HPI Chief Complaint/HPI This is a 49-year-old gentleman with no significant past medical history who presents with chest pain to [facility]. Moderate to severe chest pain. Intensity 8/10. Feels like pressure. No radiation. Associated with nausea and sweating. No shortness of breath, syncope or near syncope. Denies active smoking. Denies diabetes, hypertension, hyperlipidemia. Family history is positive for father having an VA. EKG shows acute lateral VA and patient is emergently being transferred to via [facility] Head Saw Operator. Discharge Summary Procedures Coronary angiography showed large proximal left circumflex artery aneurysm with thrombus and likely distal embolization with occlusion of OM 2 which was successfully revascularized with balloon angioplasty, manual thrombectomy. No focal stenosis therefore PCI with stent was not done. Discharge Physical Examination Stable. Hospital Course Was the Problem List Reviewed?: Yes Patient was given Integrilin and heparin infusion overnight. Changed to Eliquis 5 mg twice a day and Plavix long-term. Aspirin discontinued. No further chest pain. Discussion & Recommendations Discussion Discharge took over 30 minutes to complete. I discussed at length with the patient and family about potential treatment options for the large proximal left circumflex artery aneurysm. I will get a cardiac surgery consultation very soon. The other option is to sealing the aneurysm with a covered stent. Patient was discharged on Plavix and Eliquis long-term. High-dose statin therapy including beta colleen. We will likely start an ROXI inhibitor in the near future. Follow up appt.: Dr. Sanders in 2-3 weeks. Dicharge Diet: Cardiac Diet Activity as Tolerated: Yes Home Medications Reviewed patient Home Medication Reconciliation performed by pharmacy medication reconciliations oxygen therapy technician and/or nursing. Patients Allergies have been reviewed. Discharge Home Medications: Reviewed and agree with Discharge Medication list on patient's Discharge Instruction sheet Condition at discharge Stable. Instructions to patient/family Discussed at length with the patient and family. Clinical Quality Measures DVT/VTE Risk/Contraindication: Risk Factor Score Per Nursin RFS Level Per Nursing on Admit: 4+=Very High Toro SANDERS MD Sep 27, 2019 14:00
== END 2019-09-27 10:53 | disposition home or self-care (01) | DRG 251 ==
LOC: ER FS 07:37 → CATH 08:42 → ICU 11:13
PROVIDERS: ADMIT Internal Medicine Interventional Cardiology; ATTEND Internal Medicine Interventional Cardiology
PROC: 02703ZZ Dilation of Coronary Artery, One Artery, Percutaneous Approach (ICD-10-PCS; principal; 2019-09-25)
PROC: 02C03ZZ Extirpation of Matter from Coronary Artery, One Artery, Percutaneous Approach (ICD-10-PCS; 2019-09-25)
PROC: 4A023N7 Measurement of Cardiac Sampling and Pressure, Left Heart, Percutaneous Approach (ICD-10-PCS; 2019-09-25)
PROC: B2111ZZ Fluoroscopy of Multiple Coronary Arteries using Low Osmolar Contrast (ICD-10-PCS; 2019-09-25)
PROC: B2151ZZ Fluoroscopy of Left Heart using Low Osmolar Contrast (ICD-10-PCS; 2019-09-25)
PROC: 3E07317 Introduction of Other Thrombolytic into Coronary Artery, Percutaneous Approach (ICD-10-PCS; 2019-09-25)
DX: I21.29 ST elevation (STEMI) myocardial infarction involving other sites (principal); I25.10 Atherosclerotic heart disease of native coronary artery without angina pectoris; I25.41 Coronary artery aneurysm; Z87.891 Personal history of nicotine dependence; Z20.828 Contact with and (suspected) exposure to other viral communicable diseases
CPT/HCPCS: 36415; 71045; 80048; 80053; 83735; 83880; 84100; 84484; 85025; 85027; 85347; 85610; 85652; 85730; 86141; 87081; 87635; 93005; 93041; 93306; 93458

== ENCOUNTER → 2021-01-18 | Outpatient (CLI) | payer BC ==
[~2021-01-18] MED LIST: APIX5TAB PO; ATOR40TA PO; CLOP75TA28 PO; METO50TA7 PO
[2021-01-18 09:07] LABS: HEMATOCRIT 46 % (40-54); HEMOGLOBIN 15.8 g/dL (13.3-17.7); MEAN CORPUSCULAR HEMOGLOBIN 31 pg (25-34); MEAN CORPUSCULAR HGB CONC 35 g/dL (32-36); MEAN CORPUSCULAR VOLUME 88 fL (80-99); MEAN PLATELET VOLUME 11.1 fL (9.0-12.2); PLATELET COUNT 305 10^3/uL (130-400); WHITE BLOOD COUNT 9.2 10^3/uL (4.3-11.0)
[2021-01-18 09:39] LABS: POTASSIUM 4.1 MMOL/L (3.6-5.0)
[2021-01-18 09:40] LABS: ALBUMIN 4.4 GM/DL (3.2-4.5); BILIRUBIN,TOTAL 0.4 MG/DL (0.1-1.0); CALCIUM 9.1 MG/DL (8.5-10.1); CREATININE SERUM 0.78 MG/DL (0.60-1.30); TOTAL PROTEIN 7.1 GM/DL (6.4-8.2)
== END ==
LOC: LAB FS 08:15
PROVIDERS: ATTEND Nurse Practitioner Family
DX: I25.10 Atherosclerotic heart disease of native coronary artery without angina pectoris (principal); E78.2 Mixed hyperlipidemia
CPT/HCPCS: 36415; 80053; 80061; 85027

== ENCOUNTER 2022-04-13 15:27 | Emergency (ER) | payer BC ==
[~2022-04-13] VITALS: Ht 185.5 cm; Wt 123.5 kg
[2022-04-13] MEDS ORDERED: NS IV 1000 ML 1,000 ML IV STA (15:38)
[2022-04-13 15:44] LABS: BASOPHILS % (AUTO) 0 % (0-10); EOSINOPHILS # (AUTO) 0.2 10^3/uL (0.0-0.3); EOSINOPHILS % (AUTO) 2 % (0-10); HEMATOCRIT 45 % (40-54); HEMOGLOBIN 15.8 g/dL (13.3-17.7); LYMPHOCYTES # (AUTO) 4.1 10^3/uL (1.0-4.0); LYMPHOCYTES % (AUTO) 33 % (12-44); MEAN CORPUSCULAR HEMOGLOBIN 30 pg (25-34); MEAN CORPUSCULAR HGB CONC 35 g/dL (32-36); MEAN CORPUSCULAR VOLUME 85 fL (80-99); MEAN PLATELET VOLUME 11.6 fL (9.0-12.2); MONOCYTES # (AUTO) 0.8 10^3/uL (0.0-1.0); MONOCYTES % (AUTO) 6 % (0-12); NEUTROPHILS # (AUTO) 7.1 10^3/uL (1.8-7.8); NEUTROPHILS % (AUTO) 58 % (42-75); PLATELET COUNT 285 10^3/uL (130-400); WHITE BLOOD COUNT 12.3 10^3/uL (4.3-11.0)
[2022-04-13 16:01] LABS: ALBUMIN 4.5 GM/DL (3.2-4.5); BILIRUBIN,TOTAL 0.6 MG/DL (0.1-1.0); CALCIUM 9.7 MG/DL (8.5-10.1); CREATININE SERUM 0.81 MG/DL (0.60-1.30); POTASSIUM 4.2 MMOL/L (3.6-5.0); TOTAL PROTEIN 7.2 GM/DL (6.4-8.2)
--- NOTE | 2022-04-13 16:13 | ED General ---
General Chief Complaint: Glucose Problems Stated Complaint: ELEV GLUCOSE Source of Information: Patient History of Present Illness Date Seen by Provider: Apr 13, 2022 Time Seen by Provider: 16:11 Initial Comments 51-year-old male presenting with concern for elevated glucose. He states over the last several weeks he has had blurred vision and noticed that he was more thirsty and urinating more. When he was discussing this with a friend today they advised him to check his blood sugar out of concern for possible diabetes. It was elevated so he came to the emergency department. He denies having nausea, vomiting, headache, blurred vision currently, fever, chills. He has not followed up with primary care provider about any of the symptoms. Timing/Duration: Getting Worse (Over the last several weeks) Severity: Moderate Modifying Factors: worse with Eating Associated Systoms: No Chest Pain, No Cough, No Diaphoresis, No Fever/Chills, No Headaches, No Loss of Appetite, No Malaise, No Nausea/Vomiting, No Rash, No Seizure, No Shortness of Air, No Syncope, No Weakness Allergies and Home Medications Allergies Coded Allergies: No Known Drug Allergies (Unverified , 09/25/19) Patient Home Medication List Home Medication List Reviewed: Yes Apixaban (Eliquis) 5 Mg Tablet, 5 MG PO BID Prescribed by: SONIA ROSARIO on 09/27/19 09 Atorvastatin Calcium (Lipitor) 40 Mg Tablet, 80 MG PO HS Prescribed by: SONIA ROSARIO on 09/27/19955 Clopidogrel Bisulfate (Clopidogrel) 75 Mg Tablet, 75 MG PO DAILY Prescribed by: SONIA ROSARIO on 09/27/19 09 Metformin HCl (Metformin HCl) 500 Mg Tablet, 500 MG PO BID Prescribed by: BREA ACEVEDO on 04/13/22 1635 Metoprolol Succinate (Metoprolol Succinate) 50 Mg Tab.er.24h, 50 MG PO DAILY Prescribed by: SONIA ROSARIO on 09/27/19 09 Review of Systems Review of Systems Constitutional: No chills, No fever EENTM: see HPI Respiratory: no symptoms reported Cardiovascular: no symptoms reported Gastrointestinal: no symptoms reported Genitourinary: see HPI Musculoskeletal: no symptoms reported Skin: no symptoms reported Psychiatric/Neurological: No Symptoms Reported Hematologic/Lymphatic: No Symptoms Reported Past Xniervp-Iscyiw-Ogohyt Hx Patient Social History Tobacco Use?: No Use of E-Cig and/or Vaping dev: No Substance use?: No Alcohol Use?: No Pt feels they are or have been: No Seasonal Allergies Seasonal Allergies: No Past Medical History Surgery/Hospitalization HX: DC; Cardiac Stents; HTN; High Cholesterol Surgeries: No Respiratory: No Cardiac: No Neurological: No Genitourinary: No Gastrointestinal: No Musculoskeletal: No Endocrine: No HEENT: No Cancer: No Psychosocial: No Integumentary: No Blood Disorders: No Adverse Reaction/Blood Tranf: No Family Medical History CAD Over 55 Years Old Physical Exam Vital Signs Vital Signs - First Documented 04/13/22 15:30 Temp 35.4 Pulse 71 Resp 16 B/P (MAP) 132/90 (104) Pulse Ox 97 O2 Delivery Room Air Capillary Refill : Height, Weight, BMI Height: '" Weight: lbs. oz. kg; 35.00 BMI Method: General Appearance: No Apparent Distress, WD/WN HEENT: PERRL/EOMI, Pharynx Normal Neck: Full Range of Motion, Normal Inspection, Non Tender, Supple Respiratory: Chest Non Tender, Lungs Clear, Normal Breath Sounds, No Accessory Muscle Use, No Respiratory Distress Cardiovascular: Regular Rate, Rhythm, Normal Peripheral Pulses Gastrointestinal: Normal Bowel Sounds, No Pulsatile Mass, Non Tender, Soft Rectal: Deferred Extremity: Normal Capillary Refill, Normal Inspection, No Pedal Edema Neurologic/Psychiatric: Alert, Oriented x3, junior graphic designer II-XII Norm as Tested Skin: Normal Color, Warm/Dry Progress/Results/Core Measures Suspected Sepsis SIRS Temperature: Pulse: Respiratory Rate: Laboratory Tests 04/13/22 15:40: White Blood Count 12.3H Blood Pressure / Mean: Laboratory Tests 04/13/22 15:40: Creatinine 0.81, Platelet Count 285, Total Bilirubin 0.6 Results/Orders Lab Results Laboratory Tests Test 04/13/22 15:40 04/13/22 16:27 Range/Units White Blood Count 12.3 H 4.3-11.0 10^3/uL Red Blood Count 5.26 4.30-5.52 10^6/uL Hemoglobin 15.8 13.3-17.7 g/dL Hematocrit 45 40-54 % Mean Corpuscular Volume 85 80-99 fL Mean Corpuscular Hemoglobin 30 25-34 pg Mean Corpuscular Hemoglobin Concent 35 32-36 g/dL Red Cell Distribution Width 12.3 10.0-14.5 % Platelet Count 285 130-400 10^3/uL Mean Platelet Volume 11.6 9.0-12.2 fL Immature Granulocyte % (Auto) 0 % Neutrophils (%) (Auto) 58 42-75 % Lymphocytes (%) (Auto) 33 12-44 % Monocytes (%) (Auto) 6 0-12 % Eosinophils (%) (Auto) 2 0-10 % Basophils (%) (Auto) 0 0-10 % Neutrophils # (Auto) 7.1 1.8-7.8 10^3/uL Lymphocytes # (Auto) 4.1 H 1.0-4.0 10^3/uL Monocytes # (Auto) 0.8 0.0-1.0 10^3/uL Eosinophils # (Auto) 0.2 0.0-0.3 10^3/uL Basophils # (Auto) 0.0 0.0-0.1 10^3/uL Immature Granulocyte # (Auto) 0.0 0.0-0.1 10^3/uL Sodium Level 136 135-145 MMOL/L Potassium Level 4.2 3.6-5.0 MMOL/L Chloride Level 100 98-107 MMOL/L Carbon Dioxide Level 24 21-32 MMOL/L Anion Gap 12 5-14 MMOL/L Blood Urea Nitrogen 14 7-18 MG/DL Creatinine 0.81 0.60-1.30 MG/DL Estimat Glomerular Filtration Rate 108 BUN/Creatinine Ratio 17 Glucose Level 290 H 70-105 MG/DL Calcium Level 9.7 8.5-10.1 MG/DL Corrected Calcium 9.3 8.5-10.1 MG/DL Total Bilirubin 0.6 0.1-1.0 MG/DL Aspartate Amino Transf (AST/SGOT) 41 H 5-34 U/L Alanine Aminotransferase (ALT/SGPT) 76 H 0-55 U/L Alkaline Phosphatase 133 40-136 U/L Total Protein 7.2 6.4-8.2 GM/DL Albumin 4.5 3.2-4.5 GM/DL Lipase 13 8-78 U/L Urine Color YELLOW Urine Clarity CLEAR Urine pH 5.0 5-9 Urine Specific [place] >=1.030 1.016-1.022 Urine Protein NEGATIVE NEGATIVE Urine Glucose (UA) 3+ H NEGATIVE Urine Ketones 1+ H NEGATIVE Urine Nitrite NEGATIVE NEGATIVE Urine Bilirubin NEGATIVE NEGATIVE Urine Urobilinogen 0.2 < = 1.0 MG/DL Urine Leukocyte Esterase NEGATIVE NEGATIVE Urine RBC (Auto) TRACE-I H NEGATIVE Urine RBC NONE /HPF Urine WBC NONE /HPF Urine Squamous Epithelial Cells 2-5 /HPF Urine Crystals NONE /LPF Urine Bacteria TRACE /HPF Urine Casts NONE /LPF Urine Mucus LARGE H /LPF Urine Culture Indicated NO My Orders Orders - BREA ACEVEDO MD Accucheck Stat ONCE (04/13/22 15:35) Comprehensive Metabolic Panel (04/13/22 15:38) Lipase (04/13/22 15:38) Ua Culture If Indicated (04/13/22 15:38) Ed Iv/Invasive Line Start (04/13/22 15:38) Cbc With Automated Diff (04/13/22 15:38) Ns Iv 1000 Ml (Sodium Chloride 0.9%) (04/13/22 15:38) Vital Signs/I&O 04/13/22 04/13/22 15:30 17:00 Temp 35.4 Pulse 71 73 Resp 16 18 B/P (MAP) 132/90 (104) 132/90 Pulse Ox 97 96 O2 Delivery Room Air Room Air Capillary Refill : Point of Care Testing Finger Stick Blood Glucose: 284 Progress Note #1: Progress Note Check basic labs and urinalysis. Ordered a liter of normal saline for IV hydration. Progress Note #2: Progress Note Labs shows he has elevated glucose of 290. He does not have findings for DKA. He was not having signs of infection. Reassured patient and advise that follow a diabetic diet will help. Prescribed low-dose metformin until he can follow-up with primary care. They may use a different medicine to try and help with his sugars or they may just continue the metformin. Departure Impression Primary Impression: New onset type 2 diabetes mellitus Disposition: 01 HOME, SELF-CARE Condition: Stable Departure-Patient Inst. Decision time for Depature: 16:34 Referrals: NERISSA WILDER,LOCAL PHYSICIAN (PCP) Primary Care Physician [facility] Patient Instructions: High Blood Sugar, Adult ED, How to Keep Track of Your Blood Sugar, Diabetes and Diet Add. Discharge Instructions: Take the Metformin to help treat for Diabetes. Follow a Diabetic diet to help with your sugars. Establish care and follow up with clinic for continued treatment for Diabetes. [facility] clinic can be reached by calling [phone] to establish care and follow up All discharge instructions reviewed with patient and/or family. Voiced understanding. Scripts Metformin HCl (Metformin HCl) 500 Mg Tablet 500 MG PO BID for diabetes for 30 Days, #60 TAB 0 Refills Prov: BREA ACEVEDO MD 04/13/22 BREA ACEVEDO MD Apr 13, 2022 16:13
[2022-04-13 16:31] LABS: BILIRUBIN,URINE NEGATIVE (NEGATIVE); CLARITY,URINE CLEAR; COLOR,URINE YELLOW; GLUCOSE, URINE (UA) 3+ (NEGATIVE); KETONES,URINE 1+ (NEGATIVE); LEUKOCYTE ESTERASE ,URINE NEGATIVE (NEGATIVE); NITRITE,URINE NEGATIVE (NEGATIVE); PROTEIN,URINE NEGATIVE (NEGATIVE)
[2022-04-13 16:33] LABS: BACTERIA,URINE TRACE /HPF
[2022-04-13] MEDS ORDERED: METF-397 PO (16:35)
[2022-04-13 17:00] VITALS: BP 132/90
== END 2022-04-13 17:14 | disposition home or self-care (01) ==
LOC: EDUNIT# 15:27 → ER FS 15:29
DX: E11.9 Type 2 diabetes mellitus without complications (principal); Z28.310 Unvaccinated for COVID-19
CPT/HCPCS: 36415; 80053; 81000; 83690; 85025